=== PATIENT | male | born 1960 | race African-American/Black ===

== ENCOUNTER 2020-04-11 19:00 | Observation (INO) ==
[2020-04-11 19:25] LABS: Basophils # 0.1 10*3/uL (0.0-0.2); Eosinophils # 0.5 10*3/uL (0.0-0.87); Eosinophils % 6.9 % (0.00-10.9); Hematocrit 43.3 VOL% (42.0-52.0); Hemoglobin 14.4 GM/DL (14.0-18.0); Immature Granulocytes % 0.3 %; Immature Granulocytes Absolute 0.02 #; Lymphocytes # 2.9 10*3/uL (1.4-4.0); Mean Corpuscular HGB Conc 33.3 GM/DL (32-36); Mean Corpuscular Volume 86.8 FL (87-102); Mean Platelet Volume 10.4 FL (9.6-12.0); Monocytes % 11.8 % (1.7-12.7); Platelet Count 150 T/CUMM (130-400); Red Blood Count 4.99 MC/CUMM (3.8-5.5); Red Cell Distribution Width 13.3 % (9.3-17.3); White Blood Count 7.1 T/CUMM (4-12)
[2020-04-11 19:36] LABS: PT Patient Result 10.5 SECS (9.8-11.9); Partial Thromboplastin Time 25.6 SECS (23.9-33.8)
[2020-04-11 19:45] LABS: Albumin 3.8 G/DL (3.4-5.0); Bilirubin,Total 1.1 MG/DL (0.2-1.0); Calcium 8.6 MG/DL (8.5-10.1); Osmolality,Calculated 276.4 MOS/KG (273-304); Potassium 3.5 MMOL/L (3.5-5.1); Total Protein 7.6 G/DL (6.4-8.3)
[2020-04-11] MEDS ORDERED: ASPIRIN EC 325 MG TABLET PO STA (19:48)
[2020-04-11] MEDS ORDERED: NITROGLYCERIN SL 0.4 MG TABLET SL STA (19:48)
[2020-04-11] MEDS ORDERED: ZALEPLON 5 MG CAPSULE PO PRN (19:52)
[2020-04-11] MEDS ORDERED: DEXTROSE 50% 25 GM/50 ML VIAL IV PRN (19:52)
[2020-04-11] MEDS ORDERED: ACETAMINOPHEN 325 MG TABLET PO PRN (19:52)
[2020-04-11] MEDS ORDERED: GLUCAGON 1 MG VIAL IM PRN (19:52)
[2020-04-11] MEDS ORDERED: MORPHINE 4 MG/1 ML VIAL IV STA (19:56)
[2020-04-11] MEDS ORDERED: ONDANSETRON 4 MG/2 ML VIAL IV ONE (19:56)
[2020-04-11] MEDS ORDERED: MORPHINE 4 MG/1 ML VIAL IV PRN (19:57)
[2020-04-11] MEDS ORDERED: LORazepam 1 MG TABLET PO PRN (20:45)
[2020-04-12] MEDS: ENOXAPARIN 100 MG/ML SYRINGE SUBCUT SCH ×2 (00:02→08:40)
[2020-04-12] MEDS: NITROGLYCERIN 2% OINT 1 INCH/GM PACK TOP SCH ×2 (00:03→05:03)
[2020-04-12 07:44] LABS: Alanine Aminotransferase 37 U/L (16-61); Albumin 3.2 G/DL (3.4-5.0); Alkaline Phosphatase 55 U/L (45-117); Aspartate Amino Transferase 22 U/L (0-37); Bilirubin,Total < 0.39 MG/DL (0.2-1.0); Blood Urea Nitrogen 10 MG/DL (7-18); Calcium 8.3 MG/DL (8.5-10.1); Carbon Dioxide 25 MMOL/L (21-32); Estimated Glom Filtration Rate 138 ML/MIN; Glucose 95 MG/DL (74-106); HDL Cholesterol 52 MG/DL (40-60); Osmolality,Calculated 279.3 MOS/KG (273-304); Potassium 3.7 MMOL/L (3.5-5.1); Risk Ratio 4.02; Sodium 141 MMOL/L (136-145); Total Protein 6.8 G/DL (6.4-8.3); Triglycerides 107 MG/DL (2-150); VLDL CHOLESTEROL 21.4 MG/DL
[2020-04-12] MEDS ORDERED: FOLIC ACID 1 MG TABLET PO SCH (09:00)
[2020-04-12] MEDS ORDERED: THIAMINE 100 MG TABLET PO SCH (09:00)
[2020-04-12] MEDS ORDERED: MULTIVITAMIN (CENTRUM) TABLET PO SCH (09:00)
[2020-04-12] MEDS ORDERED: ASPIRIN EC 81 MG TABLET PO SCH (09:00)
[2020-04-12] MEDS ORDERED: PANTOPRAZOLE 40 MG TABLET PO SCH (09:00)
[2020-04-12] MEDS ORDERED: METOPROLOL TARTRATE 25 MG TABLET PO SCH (09:00)
[2020-04-12] MEDS ORDERED: ASPIRIN EC 325 MG TABLET PO SCH (09:00)
[2020-04-12 11:41] VITALS: BP 172/81
[2020-04-12] MEDS ORDERED: ROSUVASTATIN 20 MG TABLET PO SCH (21:00)
== END 2020-04-12 14:28 | disposition home or self-care (01) ==
LOC: N.ED 19:00 → N.EDINP 19:00 → N.TELES 22:04
PROVIDERS: ADMIT Internal Medicine; ATTEND Internal Medicine

== ENCOUNTER 2020-05-20 08:00 | Inpatient (IN) ==
[~2020-05-20 08:00] MED LIST: CLORAZEPATE 3.75 MG TABLET PO PRN; MORPHINE 4 MG/1 ML VIAL IV PRN
[2020-05-20] MEDS ORDERED: CHLORHEXIDINE 4% SOLN 118 ML BOTTLE TOP SCH (09:00)
[2020-05-20 09:30] LABS: Basophils # 0.1 10*3/uL (0.0-0.2); Eosinophils # 0.5 10*3/uL (0.0-0.87); Eosinophils % 7.4 % (0.00-10.9); Hematocrit 45.3 VOL% (42.0-52.0); Hemoglobin 14.8 GM/DL (14.0-18.0); Immature Granulocytes % 0.4 %; Immature Granulocytes Absolute 0.03 #; Lymphocytes % 29.9 % (21.2-54.2); Mean Corpuscular HGB Conc 32.7 GM/DL (32-36); Mean Corpuscular Volume 85.6 FL (87-102); Mean Platelet Volume 9.6 FL (9.6-12.0); Monocytes % 14.1 % (1.7-12.7); Neutrophils % 47.2 % (38.7-73.9); Platelet Count 172 T/CUMM (130-400); Red Blood Count 5.29 MC/CUMM (3.8-5.5); Red Cell Distribution Width 13.1 % (9.3-17.3); White Blood Count 6.8 T/CUMM (4-12)
[2020-05-20] MEDS ORDERED: GLUCAGON 1 MG VIAL IM PRN (09:35)
[2020-05-20] MEDS ORDERED: DEXTROSE 50% 25 GM/50 ML VIAL IV PRN (09:35)
[2020-05-20] MEDS: CHLORHEXIDINE 0.12% ORAL RINSE 60 ML BOTTLE SWISH/SPIT SCH ×2 (09:49→21:10)
[2020-05-20] MEDS ORDERED: NITROGLYCERIN SL 0.4 MG TABLET SL PRN (09:50)
[2020-05-20 09:51] LABS: Albumin 4.1 G/DL (3.4-5.0); Bilirubin,Total 0.5 MG/DL (0.2-1.0); Calcium 9.6 MG/DL (8.5-10.1); Osmolality,Calculated 269.1 MOS/KG (273-304); Potassium 3.7 MMOL/L (3.5-5.1); Total Protein 8.4 G/DL (5.0-7.5)
[2020-05-20] MEDS: SODIUM CHLORIDE 0.9% 1,000 ML IV SCH (10:03)
[2020-05-20] MEDS: CHLORHEXIDINE 4% SOLN 118 ML BOTTLE TOP SCH ×2 (15:09→21:10)
[2020-05-20 18:42] LABS: ABG Base Excess 4.9 MMOL/L (-2.5-2.5); ABG HCO3 28.7 MMOL/L (20-26); ABG PCO2 46.7 MM HG (35-48); ABG PH 7.422 (7.35-7.45); ABG PO2 73.1 MM HG (80-95); ABG TCO2 25.7 MMOL/L (23-27); Allen Test Positive
[2020-05-21] MEDS: CHLORHEXIDINE 4% SOLN 118 ML BOTTLE TOP SCH ×3 (03:55→20:05)
[2020-05-21] MEDS ORDERED: PAPAVERINE 60 MG/2 ML VIAL ONE (04:21)
[2020-05-21] MEDS ORDERED: VANCOMYCIN 500 MG VIAL ONE (04:22)
[2020-05-21] MEDS ORDERED: VANCOMYCIN 1,000 MG VIAL ONE (04:22)
[2020-05-21] MEDS ORDERED: CEFUROXIME INJ 1,500 MG in SYRINGE 1 EACH IV ONE (05:00)
[2020-05-21] MEDS ORDERED: ALBUTEROL 2.5 MG/3 ML NEB RESP TX ONE (05:45)
[2020-05-21] MEDS ORDERED: DIAZEPAM 5 MG TABLET PO ONE (05:45)
[2020-05-21] MEDS ORDERED: FAMOTIDINE 20 MG TABLET PO ONE (05:45)
[2020-05-21] MEDS ORDERED: LIDOCAINE 2% 5 ML VIAL ONE ×3 (08:44→13:50)
[2020-05-21] MEDS ORDERED: AMINOCAPROIC ACID 5,000 MG/20 ML VIAL ONE (08:44)
[2020-05-21] MEDS ORDERED: SUFentanil 250 MCG/5 ML AMP ONE ×2 (08:45)
[2020-05-21] MEDS ORDERED: VECURONIUM 10 MG VIAL IV ONE ×9 (08:46→13:48)
[2020-05-21] MEDS ORDERED: MIDAZOLAM 10 MG/2 ML VIAL ONE ×5 (08:46→13:50)
[2020-05-21] MEDS ORDERED: CALCIUM CHLORIDE 1,000 MG/10 ML VIAL IV ONE (08:46)
[2020-05-21] MEDS ORDERED: PHENYLEPHRINE DRIP 0 MG/0 ML PREMIX IV ONE ×3 (09:02→13:01)
[2020-05-21] MEDS ORDERED: LACTATED RINGERS 1,000 ML IV ONE (09:02)
[2020-05-21] MEDS ORDERED: SODIUM CHLORIDE 0.9% 100 ML IV ONE (09:03)
[2020-05-21] MEDS ORDERED: SODIUM CHLORIDE 0.9% 250 ML IV ONE (09:03)
[2020-05-21] MEDS ORDERED: HEPARIN/NACL 0.9% 2 UNITS/ML 500 ML IV ONE (09:05)
[2020-05-21 10:17] LABS: ABG Base Excess 2.5 MMOL/L (-2.5-2.5); ABG HCO3 26.7 MMOL/L (20-26); ABG PCO2 41.9 MM HG (35-48); ABG PH 7.422 (7.35-7.45); ABG TCO2 23.2 MMOL/L (23-27); Glucose Heart Surgery 134 MG/DL (74-106); Hemoglobin Heart Surgery 14.7 G/DL (14.0-18.0); Ionized Calcium Arterial 1.18 MMOL/L (1.21-1.46); PCO2 Patient Temp Arterial 41.9 MMHG; PH Patient Temp Arterial 7.422; Patient Temperature 37 CELCIUS; Potassium Heart/CVR 3.8 MMOL/L (3.5-5.1); Sodium Heart/CVR 140 MMOL/L (135-145)
[2020-05-21] MEDS ORDERED: ALBUMIN 5% 12.5 GM/250 ML VIAL IV ONE ×3 (10:45→15:50)
[2020-05-21] MEDS ORDERED: PHENYLEPHRINE DRIP 40 MG/250 ML PREMIX IV ONE (10:45)
[2020-05-21] MEDS ORDERED: PROTAMINE SULFATE 50 MG/5 ML VIAL IV ONE ×2 (10:46→14:13)
[2020-05-21] MEDS ORDERED: MIDAZOLAM 2 MG/2 ML VIAL ONE (10:46)
[2020-05-21] MEDS ORDERED: METOPROLOL TARTRATE 5 MG/5 ML VIAL IV ONE ×2 (12:02→12:03)
[2020-05-21 12:22] LABS: Hematocrit Heart Surgery 29.4 PERCENT (42-52); Hemoglobin Heart Surgery 9.5 G/DL (14.0-18.0); PCO2 Patient Temp Venous 39.3 MM HG; PH Patient Temp Venous 7.44; PO2 Patient Temp Venous 43.8 MM HG; Potassium Heart/CVR 4.9 MMOL/L (3.5-5.1); VBG Base Excess 2.5 MEQ/L (0-4); VBG HCO3 26.3 MEQ/L (24-28); VBG Oxygen Saturation 79.7 %; VBG PCO2 39.3 MMHG (41-51); VBG PH 7.44; VBG PO2 43.8 MMHG (17-40); VBG Total CO2 24.5 MMOL/L
[2020-05-21 12:49] LABS: Hematocrit Heart Surgery 34.4 PERCENT (42-52); Hemoglobin Heart Surgery 11.2 G/DL (14.0-18.0); PCO2 Patient Temp Venous 30.8 MM HG; PH Patient Temp Venous 7.52; PO2 Patient Temp Venous 36.6 MM HG; Potassium Heart/CVR 5.7 MMOL/L (3.5-5.1); VBG Base Excess 2.8 MEQ/L (0-4); VBG HCO3 26.6 MEQ/L (24-28); VBG Oxygen Saturation 82.4 %; VBG PCO2 35.6 MMHG (41-51); VBG PH 7.475; VBG PO2 45.1 MMHG (17-40); VBG Total CO2 23.5 MMOL/L
[2020-05-21] MEDS ORDERED: PHENYLEPHRINE DRIP 20 MG/250 ML PREMIX IV ONE (13:02)
[2020-05-21 13:36] LABS: ABG Base Excess 1.2 MMOL/L (-2.5-2.5); ABG HCO3 24.9 MMOL/L (20-26); ABG Oxygen Saturation 66.6 % (95-100); ABG PCO2 45.9 MM HG (35-48); ABG PH 7.374 (7.35-7.45); ABG TCO2 24.4 MMOL/L (23-27); Glucose Heart Surgery 252 MG/DL (74-106); Hematocrit Heart Surgery 33.5 PERCENT (42-52); Hemoglobin Heart Surgery 10.9 G/DL (14.0-18.0); Ionized Calcium Arterial 1.21 MMOL/L (1.21-1.46); PCO2 Patient Temp Arterial 45.9 MMHG; PH Patient Temp Arterial 7.374; PO2 Patient Temp Arterial 38.4 MM HG; Patient Temperature 37 CELCIUS; Potassium Heart/CVR 4.5 MMOL/L (3.5-5.1); Sodium Heart/CVR 135 MMOL/L (135-145)
[2020-05-21 13:41] LABS: ABG PO2 38.4 MM HG (80-95)
[2020-05-21] MEDS ORDERED: MAGNESIUM SULFATE 5 GM/10 ML VIAL IV ONE (13:50)
[2020-05-21] MEDS ORDERED: DEXTROSE 5% KCL 20 MEQ 20 MEQ/1,000 ML BAG IV ONE ×2 (13:50→13:51)
[2020-05-21] MEDS ORDERED: methylPREDNISolone SOD SUC 1,000 MG/8 ML VIAL ONE (13:50)
[2020-05-21] MEDS ORDERED: ALBUMIN 25% 25 GM/100 ML VIAL IV ONE (13:50)
[2020-05-21] MEDS ORDERED: PROTAMINE SULFATE 250 MG/25 ML VIAL IV ONE (13:51)
[2020-05-21] MEDS ORDERED: FUROSEMIDE 20 MG/2 ML VIAL ONE (13:51)
[2020-05-21] MEDS ORDERED: HEPARIN 10,000 UNIT/10 ML VIAL ONE (13:51)
[2020-05-21] MEDS ORDERED: SODIUM BICARBONATE 50 MEQ/50 ML VIAL IV ONE (13:51)
[2020-05-21] MEDS ORDERED: MANNITOL 100 GM/500 ML BAG IV ONE (13:51)
[2020-05-21] MEDS ORDERED: SEVOFLURANE 1 UNIT/15 MINUTE INH ONE (14:03)
[2020-05-21] MEDS ORDERED: hydrALAZINE 20 MG/1 ML VIAL ONE (14:03)
[2020-05-21] MEDS ORDERED: POTASSIUM CHLORIDE RIDER 10 MEQ in PREMIX 1 EACH IV PRN (14:30)
[2020-05-21] MEDS ORDERED: NITROPRUSSIDE 100 MG in DEXTROSE 5% 250 ML IV PRN (14:30)
[2020-05-21] MEDS: LACTATED RINGERS 1,000 ML IV PRN ×4 (14:30→17:30)
[2020-05-21] MEDS ORDERED: PHENYLEPHRINE DRIP 40 MG/250 ML PREMIX IV PRN (14:30)
[2020-05-21] MEDS ORDERED: CALCIUM CHLORIDE 1,000 MG/10 ML SYRINGE IV PRN (14:30)
[2020-05-21] MEDS ORDERED: SODIUM CHLORIDE 0.45% 1,000 ML IV SCH ×2 (14:30)
[2020-05-21 15:12] LABS: Basophils % 0.3 % (0.0-0.8); Eosinophils # 0.1 10*3/uL (0.0-0.87); Eosinophils % 1.8 % (0.00-10.9); Hematocrit 31.9 VOL% (42.0-52.0); Hemoglobin 10.6 GM/DL (14.0-18.0); Immature Granulocytes % 0.4 %; Immature Granulocytes Absolute 0.03 #; Lymphocytes # 1.1 10*3/uL (1.4-4.0); Lymphocytes % 15.3 % (21.2-54.2); Mean Corpuscular HGB Conc 33.2 GM/DL (32-36); Mean Corpuscular Volume 85.8 FL (87-102); Mean Platelet Volume 10.3 FL (9.6-12.0); Monocytes % 4.4 % (1.7-12.7); Neutrophils % 77.8 % (38.7-73.9); Platelet Count 115 T/CUMM (130-400); Red Blood Count 3.72 MC/CUMM (3.8-5.5)
[2020-05-21 15:15] LABS: ABG Base Excess -0.5 MMOL/L (-2.5-2.5); ABG Oxygen Saturation 98.5 % (95-100); ABG TCO2 22.9 MMOL/L (23-27); Glucose Heart Surgery 194 MG/DL (74-106); Hematocrit Heart Surgery 33.6 PERCENT (42-52); Hemoglobin Heart Surgery 10.9 G/DL (14.0-18.0); Potassium Heart/CVR 3.1 MMOL/L (3.5-5.1)
[2020-05-21 15:19] LABS: INR 1.2; PT Patient Result 12.6 SECS (9.8-11.9); Partial Thromboplastin Time 26.5 SECS (23.9-33.8)
[2020-05-21 15:26] LABS: CKMB % 3.2 %; Calcium 8.1 MG/DL (8.5-10.1); Osmolality,Calculated 281.4 MOS/KG (273-304); Potassium 3.1 MMOL/L (3.5-5.1)
[2020-05-21 15:28] LABS: Troponin I 1.91 NG/ML (0.00-0.045)
[2020-05-21] MEDS: CHLORHEXIDINE 0.12% ORAL RINSE 60 ML BOTTLE SWISH/SPIT SCH ×2 (15:30→20:05)
[2020-05-21] MEDS: SODIUM CHLORIDE 0.9% 1,000 ML IV SCH (15:30)
[2020-05-21] MEDS ORDERED: POTASSIUM CHLORIDE RIDER 100 ML IV ONE ×2 (15:40→15:50)
[2020-05-21] MEDS: POTASSIUM CHLORIDE RIDER 20 MEQ in PREMIX 1 EACH IV PRN ×4 (15:45→21:12)
[2020-05-21] MEDS: ALBUMIN 5% 12.5 GM in PREMIX 1 EACH IV PRN (16:00)
[2020-05-21] MEDS ORDERED: DEXTROSE 50% 25 GM/50 ML VIAL IV PRN (16:16)
[2020-05-21] MEDS ORDERED: ACETAMINOPHEN 650 MG SUPP RECTAL PRN (16:16)
[2020-05-21] MEDS ORDERED: INSULIN REGULAR 100 UNIT/ML IV PRN ×2 (16:16)
[2020-05-21] MEDS ORDERED: MAGNESIUM SULF RIDER 2 GM in PREMIX 1 EACH IV PRN (16:16)
[2020-05-21] MEDS ORDERED: ONDANSETRON 4 MG/2 ML VIAL IV PRN (16:16)
[2020-05-21] MEDS ORDERED: MORPHINE 10 MG/1 ML VIAL IV PRN (16:16)
[2020-05-21] MEDS ORDERED: MIDAZOLAM 2 MG/2 ML VIAL IV PRN (16:16)
[2020-05-21] MEDS ORDERED: INSULIN REGULAR DRIP 100 ML IV PRN (16:16)
[2020-05-21] MEDS ORDERED: MIDAZOLAM 10 MG/2 ML VIAL IV PRN (16:16)
[2020-05-21] MEDS ORDERED: MAGNESIUM SULF RIDER 4 GM in PREMIX 1 EACH IV PRN (16:16)
[2020-05-21] MEDS ORDERED: MORPHINE 4 MG/1 ML VIAL IV PRN (16:16)
[2020-05-21] MEDS: KETOROLAC 30 MG/1 ML VIAL IV SCH (19:46)
[2020-05-21 20:05] LABS: ABG Base Excess 0.1 MMOL/L (-2.5-2.5); ABG HCO3 25.3 MMOL/L (20-26); ABG Oxygen Saturation 98.6 % (95-100); ABG PCO2 43.4 MM HG (35-48); ABG PH 7.384 (7.35-7.45); ABG PO2 153.6 MM HG (80-95); ABG TCO2 26.7 MMOL/L (23-27); Glucose Heart Surgery 219 MG/DL (74-106); Hemoglobin Heart Surgery 10.8 G/DL (14.0-18.0)
[2020-05-21] MEDS ORDERED: FUROSEMIDE 40 MG/4 ML VIAL IV PRN (20:10)
[2020-05-21] MEDS: INSULIN REGULAR 100 UNIT/ML SUBCUT SCH (20:18)
[2020-05-21] MEDS ORDERED: CHLORHEXIDINE 0.12% ORAL RINSE 60 ML BOTTLE SWISH/SPIT SCH (21:00)
[2020-05-21 21:03] LABS: ABG Base Excess -1.2 MMOL/L (-2.5-2.5); ABG HCO3 24.2 MMOL/L (20-26); ABG Oxygen Saturation 98.6 % (95-100); ABG PCO2 43.3 MM HG (35-48); ABG PH 7.365 (7.35-7.45); ABG PO2 159.8 MM HG (80-95); ABG TCO2 25.5 MMOL/L (23-27); Glucose Heart Surgery 208 MG/DL (74-106); Potassium Heart/CVR 4.1 MMOL/L (3.5-5.1)
[2020-05-21] MEDS: CEFUROXIME INJ 1,500 MG in SODIUM CHLORIDE 0.9% 100 ML IV SCH (21:12)
[2020-05-21 21:48] LABS: VBG Base Excess -1.2 MEQ/L (0-4); VBG HCO3 22.9 MEQ/L (24-28); VBG Oxygen Saturation 68.3 %; VBG PCO2 50.1 MMHG (41-51); VBG PH 7.314; VBG PO2 41.4 MMHG (17-40); VBG Total CO2 23.4 MMOL/L
[2020-05-21] MEDS ORDERED: NITROGLYCERIN DRIP 50 MG/250 ML BOTTLE IV ONE (22:27)
[2020-05-22] MEDS ORDERED: NITROGLYCERIN DRIP 50 MG/250 ML BOTTLE IV PRN
[2020-05-22 00:07] LABS: ABG Base Excess -0.1 MMOL/L (-2.5-2.5); ABG HCO3 24.9 MMOL/L (20-26); ABG Oxygen Saturation 98.5 % (95-100); ABG PCO2 42.3 MM HG (35-48); ABG PH 7.388 (7.35-7.45); ABG PO2 155.2 MM HG (80-95); ABG TCO2 26.2 MMOL/L (23-27); Hemoglobin Heart Surgery 11.3 G/DL (14.0-18.0); Potassium Heart/CVR 4.2 MMOL/L (3.5-5.1)
[2020-05-22] MEDS: INSULIN REGULAR 100 UNIT/ML SUBCUT SCH ×3 (00:17→10:34)
[2020-05-22] MEDS: KETOROLAC 30 MG/1 ML VIAL IV SCH ×4 (00:18→18:07)
[2020-05-22 00:30] LABS: CKMB % 2.4 %
[2020-05-22 00:33] LABS: Troponin I 1.83 NG/ML (0.00-0.045)
[2020-05-22 02:26] LABS: ABG Base Excess -0.1 MMOL/L (-2.5-2.5); ABG HCO3 24.4 MMOL/L (20-26); ABG Oxygen Saturation 99.2 % (95-100); ABG PCO2 42.1 MM HG (35-48); ABG PH 7.383 (7.35-7.45); ABG TCO2 22.6 MMOL/L (23-27); Glucose Heart Surgery 203 MG/DL (74-106); Hematocrit Heart Surgery 32.9 PERCENT (42-52); Hemoglobin Heart Surgery 10.7 G/DL (14.0-18.0)
[2020-05-22] MEDS: ALBUMIN 5% 12.5 GM in PREMIX 1 EACH IV PRN (03:46)
[2020-05-22 04:29] LABS: ABG Base Excess 0.5 MMOL/L (-2.5-2.5); ABG HCO3 24.9 MMOL/L (20-26); ABG Oxygen Saturation 99.4 % (95-100); ABG PCO2 42.5 MM HG (35-48); ABG PH 7.387 (7.35-7.45); ABG TCO2 23.4 MMOL/L (23-27); Glucose Heart Surgery 167 MG/DL (74-106); Hematocrit Heart Surgery 30.3 PERCENT (42-52); Hemoglobin Heart Surgery 9.8 G/DL (14.0-18.0); Potassium Heart/CVR 3.7 MMOL/L (3.5-5.1)
[2020-05-22 04:30] LABS: Basophils % 0.1 % (0.0-0.8); Hematocrit 29.2 VOL% (42.0-52.0); Hemoglobin 9.7 GM/DL (14.0-18.0); Immature Granulocytes % 0.4 %; Immature Granulocytes Absolute 0.04 #; Lymphocytes # 0.6 10*3/uL (1.4-4.0); Lymphocytes % 6.3 % (21.2-54.2); Mean Corpuscular HGB Conc 33.2 GM/DL (32-36); Mean Corpuscular Volume 86.4 FL (87-102); Mean Platelet Volume 10.2 FL (9.6-12.0); Monocytes % 7.9 % (1.7-12.7); Neutrophils % 85.3 % (38.7-73.9); Platelet Count 115 T/CUMM (130-400); Red Blood Count 3.38 MC/CUMM (3.8-5.5); Red Cell Distribution Width 13.2 % (9.3-17.3); White Blood Count 9.7 T/CUMM (4-12)
[2020-05-22 04:50] LABS: Hypochromasia 1+; Microcytosis 1+; Platelet Estimate Decreased
[2020-05-22 05:29] LABS: Albumin 3.8 G/DL (3.4-5.0); Bilirubin,Direct 0.12 MG/DL (0.0-0.20); Bilirubin,Total 0.8 MG/DL (0.2-1.0); Calcium 8.1 MG/DL (8.5-10.1); Osmolality,Calculated 277.5 MOS/KG (273-304); Potassium 3.7 MMOL/L (3.5-5.1); Total Protein 6.6 G/DL (5.0-7.5)
[2020-05-22] MEDS: CEFUROXIME INJ 1,500 MG in SODIUM CHLORIDE 0.9% 100 ML IV SCH (06:26)
[2020-05-22] MEDS: POTASSIUM CHLORIDE RIDER 20 MEQ in PREMIX 1 EACH IV PRN (06:29)
[2020-05-22 07:49] LABS: CKMB % 1.4 %
[2020-05-22] MEDS ORDERED: ALBUTEROL 2.5 MG/3 ML NEB RESP TX PRN (09:44)
[2020-05-22] MEDS ORDERED: DEXTROSE 50% 25 GM/50 ML VIAL IV PRN ×3 (09:44→16:10)
[2020-05-22] MEDS ORDERED: KETOROLAC 30 MG/1 ML VIAL IV SCH (09:44)
[2020-05-22] MEDS ORDERED: MAGNESIUM SULF RIDER 4 GM in PREMIX 1 EACH IV PRN (09:44)
[2020-05-22] MEDS ORDERED: GLUCAGON 1 MG VIAL IM PRN ×3 (09:44→16:10)
[2020-05-22] MEDS ORDERED: oxyCODONE/ACETAMINOPHEN 5-325 MG TABLET PO PRN (09:44)
[2020-05-22] MEDS ORDERED: ONDANSETRON 4 MG/2 ML VIAL IV PRN (09:44)
[2020-05-22] MEDS ORDERED: ALUMINUM/MAGNES/SIMETH MAX STR 30 ML UDCUP PO PRN (09:44)
[2020-05-22] MEDS ORDERED: POTASSIUM CHLORIDE 20 MEQ TABLET PO PRN (09:44)
[2020-05-22] MEDS ORDERED: ZALEPLON 5 MG CAPSULE PO PRN (09:44)
[2020-05-22] MEDS ORDERED: SODIUM CHLOR 0.45% KCL 20 MEQ 20 MEQ/1,000 ML BAG IV SCH (09:44)
[2020-05-22] MEDS ORDERED: MAGNESIUM SULF RIDER 2 GM in PREMIX 1 EACH IV PRN (09:44)
[2020-05-22] MEDS ORDERED: ACETAMINOPHEN 325 MG TABLET PO PRN (09:44)
[2020-05-22] MEDS ORDERED: MAGNESIUM HYDROXIDE SUSP 30 ML UDCUP PO PRN (09:44)
[2020-05-22] MEDS: METOPROLOL TARTRATE 25 MG TABLET PO SCH ×2 (10:32→21:22)
[2020-05-22] MEDS: CETIRIZINE 10 MG TABLET PO SCH (10:32)
[2020-05-22] MEDS: MULTIVITAMIN (CENTRUM) TABLET PO SCH (10:32)
[2020-05-22] MEDS: FERROUS SULFATE 325 MG TABLET PO SCH (10:32)
[2020-05-22] MEDS: PANTOPRAZOLE 40 MG TABLET PO SCH (10:32)
[2020-05-22] MEDS: ASPIRIN EC 81 MG TABLET PO SCH (10:33)
[2020-05-22] MEDS: CHLORHEXIDINE 0.12% ORAL RINSE 60 ML BOTTLE SWISH/SPIT SCH ×3 (10:33→21:23)
[2020-05-22] MEDS: DOCUSATE SODIUM 100 MG CAPSULE PO SCH (10:33)
[2020-05-22] MEDS: FLUTICASONE FUROATE VILANTEROL INH SCH (10:34)
[2020-05-22] MEDS: [UNRECOGNIZED DRUG - OTHER] INH SCH (10:34)
[2020-05-22] MEDS: SODIUM CHLORIDE 0.9% 1,000 ML IV SCH (10:35)
[2020-05-22] MEDS: CHLORHEXIDINE 4% SOLN 118 ML BOTTLE TOP SCH (12:00)
[2020-05-22] MEDS: ROSUVASTATIN 20 MG TABLET PO SCH (21:22)
[2020-05-23] MEDS: KETOROLAC 30 MG/1 ML VIAL IV SCH ×4 (01:29→18:11)
[2020-05-23 04:42] LABS: Basophils % 0.1 % (0.0-0.8); Hematocrit 30.4 VOL% (42.0-52.0); Hemoglobin 9.9 GM/DL (14.0-18.0); Immature Granulocytes % 0.7 %; Lymphocytes # 1.3 10*3/uL (1.4-4.0); Lymphocytes % 8.6 % (21.2-54.2); Mean Corpuscular HGB Conc 32.6 GM/DL (32-36); Mean Corpuscular Volume 87.9 FL (87-102); Mean Platelet Volume 10.6 FL (9.6-12.0); Monocytes % 12.4 % (1.7-12.7); Neutrophils % 78.2 % (38.7-73.9); Platelet Count 130 T/CUMM (130-400); Red Blood Count 3.46 MC/CUMM (3.8-5.5); Red Cell Distribution Width 13.4 % (9.3-17.3)
[2020-05-23 05:01] LABS: White Blood Count 14.9 T/CUMM (4-12)
[2020-05-23 05:10] LABS: Hypochromasia 1+
[2020-05-23 05:11] LABS: Microcytosis 1+
[2020-05-23 05:14] LABS: Albumin 3.7 G/DL (3.4-5.0); Bilirubin,Direct 0.1 MG/DL (0.0-0.20); Bilirubin,Indirect 0.3 MG/DL (0.0-1.0); Bilirubin,Total 0.4 MG/DL (0.2-1.0); CKMB % 0.4 %; Calcium 8.5 MG/DL (8.5-10.1); Osmolality,Calculated 277.5 MOS/KG (273-304); Potassium 4.3 MMOL/L (3.5-5.1); Total Protein 7.2 G/DL (5.0-7.5)
[2020-05-23 05:16] LABS: Troponin I 1.67 NG/ML (0.00-0.045)
[2020-05-23] MEDS ORDERED: FUROSEMIDE 40 MG/4 ML VIAL IV ONE (06:00)
[2020-05-23] MEDS: METOPROLOL TARTRATE 25 MG TABLET PO SCH ×2 (09:28→20:29)
[2020-05-23] MEDS: FERROUS SULFATE 325 MG TABLET PO SCH (09:28)
[2020-05-23] MEDS: CETIRIZINE 10 MG TABLET PO SCH (09:28)
[2020-05-23] MEDS: PANTOPRAZOLE 40 MG TABLET PO SCH (09:28)
[2020-05-23] MEDS: DOCUSATE SODIUM 100 MG CAPSULE PO SCH (09:29)
[2020-05-23] MEDS: ASPIRIN EC 81 MG TABLET PO SCH (09:30)
[2020-05-23] MEDS: CHLORHEXIDINE 0.12% ORAL RINSE 60 ML BOTTLE SWISH/SPIT SCH ×2 (09:33→20:29)
[2020-05-23] MEDS: MULTIVITAMIN (CENTRUM) TABLET PO SCH (09:47)
[2020-05-23] MEDS: [UNRECOGNIZED DRUG - OTHER] INH SCH (09:47)
[2020-05-23] MEDS: FLUTICASONE FUROATE VILANTEROL INH SCH (09:47)
[2020-05-23] MEDS: ROSUVASTATIN 20 MG TABLET PO SCH (20:28)
[2020-05-24] MEDS: KETOROLAC 30 MG/1 ML VIAL IV SCH ×4 (01:00→18:09)
[2020-05-24 06:04] LABS: Basophils % 0.3 % (0.0-0.8); Eosinophils % 0.3 % (0.00-10.9); Hematocrit 29.5 VOL% (42.0-52.0); Immature Granulocytes % 0.7 %; Immature Granulocytes Absolute 0.08 #; Lymphocytes # 2.2 10*3/uL (1.4-4.0); Lymphocytes % 19.1 % (21.2-54.2); Mean Corpuscular HGB Conc 33.9 GM/DL (32-36); Mean Corpuscular Volume 85.5 FL (87-102); Mean Platelet Volume 11.2 FL (9.6-12.0); Neutrophils % 65.6 % (38.7-73.9); Platelet Count 116 T/CUMM (130-400); Red Blood Count 3.45 MC/CUMM (3.8-5.5); Red Cell Distribution Width 13.3 % (9.3-17.3); White Blood Count 11.4 T/CUMM (4-12)
[2020-05-24 06:25] LABS: Hypochromasia 1+; Microcytosis 1+
[2020-05-24 06:26] LABS: Platelet Estimate Adequate
[2020-05-24 06:40] LABS: Alanine Aminotransferase 93 U/L (16-61); Albumin 3.4 G/DL (3.4-5.0); Alkaline Phosphatase 56 U/L (45-117); Aspartate Amino Transferase 83 U/L (0-37); Bilirubin,Indirect 0.6 MG/DL (0.0-1.0); Blood Urea Nitrogen 12 MG/DL (7-18); Calcium 8.4 MG/DL (8.5-10.1); Carbon Dioxide 26 MMOL/L (21-32); Estimated Glom Filtration Rate 142 ML/MIN; Glucose 109 MG/DL (74-106); Osmolality,Calculated 277.5 MOS/KG (273-304); Potassium 3.9 MMOL/L (3.5-5.1); Sodium 139 MMOL/L (136-145)
[2020-05-24] MEDS: DOCUSATE SODIUM 100 MG CAPSULE PO SCH (09:19)
[2020-05-24] MEDS: FERROUS SULFATE 325 MG TABLET PO SCH (09:19)
[2020-05-24] MEDS: MULTIVITAMIN (CENTRUM) TABLET PO SCH (09:19)
[2020-05-24] MEDS: ASPIRIN EC 81 MG TABLET PO SCH (09:19)
[2020-05-24] MEDS: PANTOPRAZOLE 40 MG TABLET PO SCH (09:20)
[2020-05-24] MEDS: METOPROLOL TARTRATE 25 MG TABLET PO SCH ×2 (09:20→20:25)
[2020-05-24] MEDS: CETIRIZINE 10 MG TABLET PO SCH (09:20)
[2020-05-24] MEDS: CHLORHEXIDINE 0.12% ORAL RINSE 60 ML BOTTLE SWISH/SPIT SCH ×2 (09:20→20:26)
[2020-05-24] MEDS: [UNRECOGNIZED DRUG - OTHER] INH SCH (11:06)
[2020-05-24] MEDS: FLUTICASONE FUROATE VILANTEROL INH SCH (11:06)
[2020-05-24] MEDS: POLYETHYLENE GLYCOL POWDER 17 GM PACK PO SCH (11:16)
[2020-05-24] MEDS: ROSUVASTATIN 20 MG TABLET PO SCH (20:25)
[2020-05-25] MEDS: KETOROLAC 30 MG/1 ML VIAL IV SCH ×2 (00:05→05:16)
[2020-05-25 05:20] LABS: Osmolality,Calculated 283.3 MOS/KG (273-304); Potassium 3.8 MMOL/L (3.5-5.1)
[2020-05-25 06:07] LABS: Basophils % 0.4 % (0.0-0.8); Eosinophils # 0.2 10*3/uL (0.0-0.87); Hematocrit 25.3 VOL% (42.0-52.0); Hemoglobin 8.7 GM/DL (14.0-18.0); Immature Granulocytes % 0.5 %; Immature Granulocytes Absolute 0.04 #; Lymphocytes # 2.4 10*3/uL (1.4-4.0); Lymphocytes % 29.4 % (21.2-54.2); Mean Corpuscular HGB Conc 34.4 GM/DL (32-36); Mean Corpuscular Volume 84.6 FL (87-102); Mean Platelet Volume 10.7 FL (9.6-12.0); Monocytes % 11.7 % (1.7-12.7); Platelet Count 129 T/CUMM (130-400); Red Blood Count 2.99 MC/CUMM (3.8-5.5); Red Cell Distribution Width 13.2 % (9.3-17.3); White Blood Count 8.1 T/CUMM (4-12)
[2020-05-25] MEDS: CHLORHEXIDINE 0.12% ORAL RINSE 60 ML BOTTLE SWISH/SPIT SCH ×2 (08:29→20:50)
[2020-05-25] MEDS: POLYETHYLENE GLYCOL POWDER 17 GM PACK PO SCH (08:30)
[2020-05-25] MEDS: DOCUSATE SODIUM 100 MG CAPSULE PO SCH (08:30)
[2020-05-25] MEDS: PANTOPRAZOLE 40 MG TABLET PO SCH (08:30)
[2020-05-25] MEDS: FERROUS SULFATE 325 MG TABLET PO SCH (08:30)
[2020-05-25] MEDS: CETIRIZINE 10 MG TABLET PO SCH (08:30)
[2020-05-25] MEDS: METOPROLOL TARTRATE 25 MG TABLET PO SCH ×2 (08:30→20:50)
[2020-05-25] MEDS: MULTIVITAMIN (CENTRUM) TABLET PO SCH (08:31)
[2020-05-25] MEDS: ASPIRIN EC 81 MG TABLET PO SCH (08:31)
[2020-05-25] MEDS ORDERED: FUROSEMIDE 40 MG/4 ML VIAL IV ONE (08:45)
[2020-05-25] MEDS: FLUTICASONE FUROATE VILANTEROL INH SCH (10:03)
[2020-05-25] MEDS: [UNRECOGNIZED DRUG - OTHER] INH SCH (10:03)
[2020-05-25] MEDS: ROSUVASTATIN 20 MG TABLET PO SCH (20:50)
[2020-05-26 05:16] LABS: Basophils # 0.1 10*3/uL (0.0-0.2); Basophils % 0.6 % (0.0-0.8); Eosinophils # 0.3 10*3/uL (0.0-0.87); Eosinophils % 3.1 % (0.00-10.9); Hematocrit 28.9 VOL% (42.0-52.0); Hemoglobin 9.8 GM/DL (14.0-18.0); Immature Granulocytes % 0.8 %; Immature Granulocytes Absolute 0.07 #; Lymphocytes # 2.1 10*3/uL (1.4-4.0); Lymphocytes % 25.3 % (21.2-54.2); Mean Corpuscular HGB Conc 33.9 GM/DL (32-36); Mean Corpuscular Volume 84.3 FL (87-102); Mean Platelet Volume 10.7 FL (9.6-12.0); Neutrophils % 55.2 % (38.7-73.9); Platelet Count 170 T/CUMM (130-400); Red Blood Count 3.43 MC/CUMM (3.8-5.5); Red Cell Distribution Width 13.1 % (9.3-17.3); White Blood Count 8.5 T/CUMM (4-12)
[2020-05-26 05:46] LABS: Alanine Aminotransferase 107 U/L (16-61); Albumin 2.7 G/DL (3.4-5.0); Alkaline Phosphatase 71 U/L (45-117); Aspartate Amino Transferase 50 U/L (0-37); Bilirubin,Indirect 0.4 MG/DL (0.0-1.0); Blood Urea Nitrogen 11 MG/DL (7-18); Calcium 7.9 MG/DL (8.5-10.1); Carbon Dioxide 25 MMOL/L (21-32); Estimated Glom Filtration Rate 141 ML/MIN; Glucose 101 MG/DL (74-106); Osmolality,Calculated 281.1 MOS/KG (273-304); Potassium 3.8 MMOL/L (3.5-5.1); Sodium 142 MMOL/L (136-145); Total Protein 6.4 G/DL (6.4-8.2)
[2020-05-26 05:47] LABS: Troponin I 0.259 NG/ML (0.00-0.045)
[2020-05-26] MEDS: ASPIRIN EC 81 MG TABLET PO SCH (08:11)
[2020-05-26] MEDS: FERROUS SULFATE 325 MG TABLET PO SCH (08:11)
[2020-05-26] MEDS: MULTIVITAMIN (CENTRUM) TABLET PO SCH (08:11)
[2020-05-26] MEDS: DOCUSATE SODIUM 100 MG CAPSULE PO SCH (08:11)
[2020-05-26] MEDS: METOPROLOL TARTRATE 25 MG TABLET PO SCH (08:12)
[2020-05-26] MEDS: CETIRIZINE 10 MG TABLET PO SCH (08:12)
[2020-05-26] MEDS: PANTOPRAZOLE 40 MG TABLET PO SCH (08:12)
[2020-05-26] MEDS: [UNRECOGNIZED DRUG - OTHER] INH SCH (08:12)
[2020-05-26] MEDS: FLUTICASONE FUROATE VILANTEROL INH SCH (08:12)
[2020-05-26] MEDS: CHLORHEXIDINE 0.12% ORAL RINSE 60 ML BOTTLE SWISH/SPIT SCH (08:12)
[2020-05-26] MEDS: POLYETHYLENE GLYCOL POWDER 17 GM PACK PO SCH (08:12)
[2020-05-26 11:19] VITALS: BP 112/64
== END 2020-05-26 12:14 | disposition home health service (06) | DRG 236 ==
LOC: N.TELEN 08:34 → N.CVR 05-21 14:44 → N.TELES 05-22 14:53